=== PATIENT | male | born 1985 | race Caucasian/White ===

== ENCOUNTER 2019-01-23 19:51 | Emergency (ER) | payer OTHER ==
[~2019-01-23] VITALS: Ht 175.3 cm; Wt 131.5 kg
--- OUTSIDE RECORDS SUMMARY | 2019-01-23 22:12 | XMS ---
PreManage Notification: RENETTA SWAN [employer] Events No recent Security Events currently on file CRITERIA MET - PDM CARE PROVIDERS Julian Durant DO [facility] Current PHONE: Unknown JULIAN DURANT Primary Care Current PHONE: Unknown Julian Durant Current PHONE: Unknown LUIGI GUILLEN Primary Care 03/19/2012-Current PHONE: [phone] DEEPAKLAURE Primary Care 09/05/2011-Current PHONE: [phone] Gilberto has no Care Guidelines for this patient. EPuja VISIT COUNT (12 MO.) 6 [address]eron[address] Villegas TOTAL 8 NOTE: Visits indicate total known visits. ED/UCC VISIT TRACKING (12 MO.) 01/23/2019 19:53 [facility] [place] TYPE: Emergency COMPLAINT: - CHEST DISCOMFORT,UPPER ABD PAIN 11/26/2018 01:03 [facility] [place] TYPE: Emergency DIAGNOSES: - Strain of muscle, fascia and tendon at neck level, initial encounter - NECK PAIN 09/15/2018 04:51 [facility] [place] TYPE: Emergency DIAGNOSES: - HURT BACK AT WORK [id number] - Strain of other muscles, fascia and tendons at shoulder and upper arm level, left arm, initial encounter 05/08/2018 22:08 [facility] TYPE: Emergency COMPLAINT: - ABD PAIN - UNSPECIFIED ABDOMINAL PAIN DIAGNOSES: 0. Unspecified abdominal pain 1. Calculus of bile duct without cholangitis or cholecystitis without obstruction 3. Personal history of peptic ulcer disease 4. Other chest pain 5. Obesity, unspecified 6. Other emt intermediate (current) drug therapy 7. Nicotine dependence, unspecified, uncomplicated 05/02/2018 16:20 [facility] DIAGNOSES: - Side pain poss gallbladder - Right upper quadrant pain 04/27/2018 10:45 [facility] [place] TYPE: Emergency DIAGNOSES: - VOMITING \E\T\E\ PAIN IN ABDOMEN - Peptic ulcer, site unspecified, unspecified as acute or chronic, without hemorrhage or perforation - Calculus of bile duct without cholangitis or cholecystitis without obstruction 04/22/2018 04:37 [facility] [place] TYPE: Emergency DIAGNOSES: - SHORTNESS OF BREATH - Acute maxillary sinusitis, unspecified - Bronchitis, not specified as acute or chronic 03/30/2018 18:27 [facility] [place] TYPE: Emergency DIAGNOSES: - Orthostatic hypotension - LUMP ON HEAD, UNCONCIOUS AT HOME - Contusion of other part of head, initial encounter INPATIENT VISIT TRACKING (12 MO.) No inpatient visits to display in this time frame [email or web address]
--- NOTE | 2019-01-24 12:54 | EKG ---
[facility] [address] [facility] [place], [place] [address] Signed Normal sinus rhythm Normal ECG No previous ECGs available Confirmed by SIA GARCIA DO ([id number]) on 01/24/2019 12:54:31 PM Electronically Signed By: SIA GARCIA DO 01/24/19 1254 PATIENT NAME: RENETTA SWAN Electrocardiogram DATE OF : 87 PHYSICIAN: SIA GARCIA DO REPORT #: [id number] REPORT IS CONFIDENTIAL AND NOT TO BE RELEASED WITHOUT AUTHORIZATION
== END 2019-01-23 21:42 | disposition home or self-care (01) ==
LOC: ED 19:51
DX: R10.13 Epigastric pain (principal)
CPT/HCPCS: 71045; 80053; 83690; 84484; 85025; 93005; 93010; 99284-25